=== PATIENT | male | born 1995 | race Caucasian/White ===

== ENCOUNTER 2022-01-18 07:03 | Emergency (ER) | payer OTHER ==
[~2022-01-18] VITALS: Ht 170.2 cm; Wt 75.0 kg
[2022-01-18] MEDS ORDERED: KETOROLAC TROMETHAMINE 10 MG TAB PO ONE (09:20)
[2022-01-18 10:35] VITALS: BP 119/67
== END 2022-01-18 10:37 | disposition home or self-care (01) ==
LOC: M ED 07:03
DX: S29.011A Strain of muscle and tendon of front wall of thorax, initial encounter (principal); Y92.9 Unspecified place or not applicable; Y93.9 Activity, unspecified; Y99.9 Unspecified external cause status